=== PATIENT | female | born 1965 | race Caucasian/White ===

== ENCOUNTER 2018-02-01 23:01 | Emergency (ER) | payer MEDICAID ==
[2018-02-01] MEDS ORDERED: DiphenhydrAMINE 50 mg/ml Inj IV STA (23:28)
--- NOTE | 2018-02-01 23:32 | ED PDOC ---
HPI: Skin/Bite Injury Time Seen by Provider: 02/01/18 23:11 Chief Complaint (Nursing): Allergic Reaction Chief Complaint (Provider): rash History Per: Patient History/Exam Limitations: no limitations Onset/Duration Of Symptoms: Days (2) Quality Of Symptoms: Itching Additional Complaint(s): 52 y/o female presents for evaluation of diffuse pruritic rash x 2 days. Itchi ng improved with Zyrtec. Denies facial swelling, difficulty speaking/swallowing, throat pain, cough, chest pain, shortness of breath, palpitations, vomiting/diarrhea, known allergen. Past Medical History Reviewed: Historical Data, Nursing Documentation, Vital Signs Vital Signs: Last Vital Signs Temp 97.4 F L 02/01/18 23:04 Pulse 84 02/01/18 23:04 Resp 18 02/01/18 23:04 BP 123/82 02/01/18 23:04 Pulse Ox 98 02/01/18 23:04 - Medical History PMH: Malignancy (right breast CA (in remission)) - Surgical History Surgical History: No Surg Hx - Family History Family History: States: No Known Family Hx - Living Arrangements Living Arrangements: With Family - Immunization History Hx Influenza Vaccination: No Hx Pneumococcal Vaccination: No - Home Medications Home Medications: Ambulatory Orders Medication Instructions Recorded Dextromethorphan Hydrobromid1 5 ml PO QID #120 ml 06/16/13 [Robitussin Dm 10 mg/5 ml-100 mg/5 ml 120 ml] RX: Azithromycin 500 mg PO DAILY #7 tab 06/16/13 Famotidine [Pepcid] 20 mg PO BID #8 tab 02/02/18 RX: Prednisone 50 mg PO DAILY #4 tablet 02/02/18 - Allergies Allergies/Adverse Reactions: Allergies Allergy/AdvReac Type Severity Reaction Status Date / Time shrimp Allergy RASH Verified 02/02/18 00:37 Review of Systems ROS Statement: Except As Marked, All Systems Reviewed And Found Negative Skin: Positive for: Rash Physical Exam - Reviewed Nursing Documentation Reviewed: Yes Vital Signs Reviewed: Yes - Physical Exam Appears: Positive for: Well, Non-toxic, No Acute Distress Head Exam: Positive for: ATRAUMATIC, NORMAL INSPECTION, NORMOCEPHALIC Skin: Positive for: Rash (diffuse hives) Eye Exam: Positive for: Normal appearance ENT: Positive for: Normal ENT Inspection Cardiovascular/Chest: Positive for: Regular Rate, Rhythm Respiratory: Positive for: Normal Breath Sounds Gastrointestinal/Abdominal: Positive for: Normal Exam Back: Positive for: Normal Inspection Extremity: Positive for: Normal ROM Neurologic/Psych: Positive for: Alert, Oriented (x3) - ECG O2 Sat by Pulse Oximetry: 98 - Progress ED Course And Treament: -IV solu-medrol -IV benadryl -IV pepcid 1:15 Patient states she is feeling better. Rash nearly resolved Patient educated on findings, discharged with rx Prednisone, Pepcid. Advised to continue Zyrtec daily Follow up with PMD for assistant scientist/derm referral Return precautions given Disposition - Clinical Impression Clinical Impression: Urticaria - Patient ED Disposition Is Patient to be Admitted: No Counseled Patient/Family Regarding: Diagnosis, Need For Followup, Rx Given - Disposition Disposition: Routine/Home Disposition Time: 01:25 Condition: IMPROVED Prescriptions: Famotidine [Pepcid] 20 mg PO BID #8 tab RX: Prednisone 50 mg PO DAILY #4 tablet Instructions: Hives Forms: [email or web address] (Czech) Print Language: NEPALI
[2018-02-01] MEDS ORDERED: DiphenhydrAMINE 50 mg/ml Inj ONE (23:45)
[2018-02-02 02:41] VITALS: BP 122/87; PULSE 76; RESP 96; TEMP 98.7; O2SAT 97
== END 2018-02-02 02:00 | disposition home or self-care (01) ==
LOC: H.ER 23:01
DX: L50.0 Allergic urticaria (principal)
CPT/HCPCS: 81025; 96374; 96375; 99283; J1200; J2930

== ENCOUNTER 2018-03-17 12:00 | Emergency (ER) | payer MEDICAID ==
[2018-03-17 12:03] VITALS: BMI 27.4
[2018-03-17] MEDS ORDERED: Sodium Chloride 0.9% 1,000 ML IV STA (12:23)
--- NOTE | 2018-03-17 12:26 | ED PDOC ---
HPI: Abdomen Time Seen by Provider: 03/17/18 12:16 Chief Complaint (Nursing): Abdominal Pain Chief Complaint (Provider): abdominal pain History Per: Patient History/Exam Limitations: no limitations Onset/Duration Of Symptoms: Days (x1) Current Symptoms Are (Timing): Still Present Location Of Pain/Discomfort: Epigastric Associated Symptoms: Nausea, Back Pain. denies: Fever, Chills, Vomiting, Diarrhea, Chest Pain, Urinary Symptoms Additional Complaint(s): Karina Flores is a 52 year old female, with a past medical history of gastritis, who presents to the emergency department complaining of an epigastric abdominal pain that radiates to the back associated with nausea and generalized weakness onset yesterday. Patient states pain started yesterday, it improved but worsened this morning which prompted ED visit. She reports similar pain in the past but not as severe, she did not take any medication for symptoms. She denies any fever, chills, vomiting, diarrhea, chest pain, shortness of breath, headache, dizziness, leg pain, urinary symptoms, weakness, numbness or tingling. No further medical complaints. PMD: Tyler Gongora Past Medical History Reviewed: Historical Data, Nursing Documentation, Vital Signs Vital Signs: Last Vital Signs Temp 98.2 F 03/17/18 12:03 Pulse 73 03/17/18 12:03 Resp 17 03/17/18 12:03 BP 129/88 03/17/18 12:03 Pulse Ox 98 03/17/18 12:03 - Medical History PMH: Gastritis, Malignancy Denies: Chronic Kidney Disease - Surgical History Surgical History: No Surg Hx - Family History Family History: States: Unknown Family Hx - Immunization History Hx Influenza Vaccination: No Hx Pneumococcal Vaccination: No - Home Medications Home Medications: Ambulatory Orders Medication Instructions Recorded Famotidine [Pepcid] 20 mg PO DAILY PRN #6 tab 03/17/18 - Allergies Allergies/Adverse Reactions: Allergies Allergy/AdvReac Type Severity Reaction Status Date / Time shrimp Allergy RASH Verified 03/17/18 12:12 Review of Systems ROS Statement: Except As Marked, All Systems Reviewed And Found Negative Constitutional: Positive for: Weakness (generalized). Negative for: Fever, Chills Cardiovascular: Negative for: Chest Pain Respiratory: Negative for: Shortness of Breath Gastrointestinal: Positive for: Nausea, Abdominal Pain. Negative for: Vomiting, Diarrhea Musculoskeletal: Negative for: Leg Pain Neurological: Negative for: Weakness, Numbness (tingling), Headache, Dizziness Physical Exam - Reviewed Nursing Documentation Reviewed: Yes Vital Signs Reviewed: Yes - Physical Exam Appears: Positive for: No Acute Distress Head Exam: Positive for: ATRAUMATIC, NORMAL INSPECTION, NORMOCEPHALIC Skin: Positive for: Normal Color, Warm, Dry Eye Exam: Positive for: Normal appearance, EOMI, PERRL Neck: Positive for: Normal, Painless ROM, Supple Cardiovascular/Chest: Positive for: Regular Rate, Rhythm. Negative for: Murmur Respiratory: Positive for: Normal Breath Sounds. Negative for: Respiratory Distress Gastrointestinal/Abdominal: Positive for: Tenderness (mild epigastric tenderness . No periumbilical, left or right lower tenderness. ). Negative for: Guarding, Rebound Back: Positive for: Normal Inspection. Negative for: L CVA Tenderness, R CVA Tenderness, Vertebral Tenderness Extremity: Positive for: Normal ROM (upper and lower extremities). Negative for: Deformity Neurologic/Psych: Positive for: Alert, Oriented. Negative for: Motor/Sensory Deficits - Laboratory Results Result Diagrams: 03/17/18 13:00 03/17/18 13:00 Lab Results: no acute - ECG ECG: Positive for: Interpreted By Me, Viewed By Me ECG Rhythm: Positive for: Normal QRS, Normal ST Segment, Sinus Rhythm O2 Sat by Pulse Oximetry: 98 (RA) Pulse Ox Interpretation: Normal - Progress ED Course And Treament: 1448: Stable. AAOx3. Pain free. Tolerated PO. Fu with pcp. Medical Decision Making Medical Decision Making: Time: 12:16 Initial Impression: abdominal pain Initial Plan: --EKG --CMP --Lipase --Troponin I --CBC w/ differential --Pepcid 20 mg IVP --NaCl 1,000 ml IV 1,000mls/hr --Reevaluation Scribe Attestation: Documented by Osorio Sanchez, acting as a scribe for Lacho Denney MD Provider Scribe Attestation: All medical record entries made by the Scribe were at my direction and personally dictated by me. I have reviewed the chart and agree that the record accurately reflects my personal performance of the history, physical exam, medical decision making, and the department course for this patient. I have also personally directed, reviewed, and agree with the discharge instructions and disposition. Disposition - Clinical Impression Clinical Impression: Abdominal pain - Patient ED Disposition Is Patient to be Admitted: No - Disposition Referrals: [facility] [Outside] - 03/20/18 Disposition: Routine/Home Disposition Time: 14:49 Condition: STABLE Additional Instructions: Return if not better in 3 days. Prescriptions: Famotidine [Pepcid] 20 mg PO DAILY PRN #6 tab PRN Reason: Pain Instructions: Stomach Ache and Stomach Upset Forms: [employer] (Djiboutian), [facility] ED School/Work Excuse Print Language: MOSOTHO
[2018-03-17 13:14] LABS: BASO % 0.4 % (0.0-2.0); EOS # 0.1 K/uL (0.0-0.7); EOS % 0.8 % (0.0-4.0); HEMOGLOBIN 13.3 g/dL (12.0-16.0); LYMPH # 1.7 K/uL (1.0-4.3); MEAN CORPUSCULAR HEMOGLOBIN 28.8 pg (27.0-31.0); MEAN CORPUSCULAR HGB CONC 33.1 g/dL (33.0-37.0); MEAN PLATELET VOLUME 9.6 fl (7.2-11.7); MONO # 0.6 K/uL (0.0-0.8); MONO % 5.1 % (0.0-10.0); NEUT # 8.8 K/uL (1.8-7.0); NEUT % 78.7 % (50.0-75.0); NRBC % 0.1 % (0.0-0.0); RBC 4.61 Mil/uL (3.80-5.20); RED CELL DISTRIBUTION WIDTH 14.4 % (11.5-14.5); WHITE BLOOD COUNT 11.1 K/uL (4.8-10.8)
[2018-03-17 13:26] LABS: ALB/GLOB RATIO 1.3 (1.0-2.1); ALBUMIN 4.4 g/dL (3.5-5.0); ALT/SGPT 20 U/L (9-52); AST/SGOT 23 U/L (14-36); BLOOD UREA NITROGEN 9 mg/dl (7-17); CALCIUM 9.9 mg/dL (8.4-10.2); GFR NON-AFRICAN AMERICAN > 60; LIPASE 53 U/L (23-300)
--- NOTE | 2018-03-17 14:34 | CARD ---
APPROVED REPORT Date of service: 03/17/2018 EKG Measurement Heart [id number] <Conclusion> Normal sinus rhythm Nonspecific ST abnormality Abnormal ECG
[2018-03-17 15:42] VITALS: BP 119/69; PULSE 79; RESP 20; TEMP 98; O2SAT 100
== END 2018-03-17 15:41 | disposition home or self-care (01) ==
LOC: H.ER 12:00
DX: R10.13 Epigastric pain (principal)
CPT/HCPCS: 80053; 83690; 84484; 85025; 93005; 96361; 96374; 99284; J7030